=== PATIENT | male | born 1960 | race African-American/Black ===

== ENCOUNTER → 2016-11-16 | Outpatient (CLI) | payer OTHER ==
--- NOTE | 2016-11-17 09:10 | DI ---
Indication: [email or web address]: DIAGNOSTIC TESTING PROCEDURE: FOOT RIGHT 3 VIEWS: Encounter: Initial Comparison: None Findings: There is no acute fracture, dislocation or malalignment identified. Mild degenerative change in the first metatarsophalangeal joint. Mild degenerative change in the tibiotalar joint. Impression: No acute osseous abnormality. .
--- NOTE | 2016-11-17 09:11 | DI ---
Indication: [email or web address]: DIAGNOSTIC TESTING PROCEDURE: FOOT LEFT 3 VIEWS: Encounter: Initial Comparison: None Findings: There is no acute fracture, dislocation or malalignment identified. Mild degenerative change in the tibiotalar joint. Impression: No acute osseous abnormality. .
== END ==
LOC: IMA 18:19
DX: Z02.89 Encounter for other administrative examinations (principal)